=== PATIENT | female | born 1995 | race African-American/Black ===

== ENCOUNTER 2022-02-04 23:05 | Emergency (ER) | payer SELFPAY ==
[~2022-02-04] VITALS: Ht 149.9 cm; Wt 65.0 kg
[2022-02-04 23:43] VITALS: BP 144/94
[2022-02-05 00:18] LABS: BASOPHILS % 0.9 % (0.0-2.0); EOSINOPHILS % 2.2 % (0.0-5.0); HEMATOCRIT. 37.1 % (36.0-48.0); HEMOGLOBIN. 12.4 g/dL (12.0-16.0); LYMPHOCYTES % 57.2 % (20.0-50.0); MEAN CORPUSCULAR HEMOGLOBIN 32.8 pg (28.0-32.0); MEAN PLATELET VOLUME 7.7 fl (7.4-10.4); MONOCYTES % 5.9 % (2.0-8.0); NEUTROPHILS % 33.8 % (40.0-76.0); PLATELET 253 x1000/uL (130-400); RED BLOOD CELL COUNT 3.79 mill/uL (4.2-5.4); RED CELL DISTRIBUTION WIDTH 15.1 % (11.6-14.6)
[2022-02-05 00:45] LABS: CHLORIDE 107 mEq/L (98-107)
[2022-02-05 00:56] LABS: B-HCG QUANTITATIVE < 1 mIU/mL (<3)
[2022-02-05 01:49] LABS: CLARITY URINE CLOUDY (CLEAR); COLOR URINE YELLOW (YELLOW); KETONES URINE TRACE (NEGATIVE); LEUKOCYTE ESTERASE URINE 2+ (NEGATIVE); NITRITE URINE NEGATIVE (NEGATIVE); OCCULT BLOOD URINE NEGATIVE (NEGATIVE); PROTEIN URINE NEGATIVE (NEGATIVE); SPECIFIC GRAVITY URINE 1.019 (1.005-1.030)
[2022-02-05] MEDS ORDERED: SULF1TAB48 PO (03:43)
[2022-02-05] MEDS ORDERED: NAPR-681 PO (03:43)
== END 2022-02-05 03:59 | disposition home or self-care (01) ==
LOC: ER 23:57
DX: N39.0 Urinary tract infection, site not specified (principal)
CPT/HCPCS: 36415; 76830; 76856; 80053; 81003; 84702; 85025; 86850; 86900; 87077; 99284

== ENCOUNTER 2022-03-15 13:03 | Emergency (ER) | payer SELFPAY ==
[~2022-03-15] VITALS: Ht 149.9 cm; Wt 63.0 kg
[~2022-03-15 13:03] MED LIST: NAPR-681 PO; SULF1TAB48 PO
[2022-03-15 13:09] VITALS: BP 121/75
[2022-03-15] MEDS ORDERED: ACETAMINOPHEN 325MG TABLET PO PRN (15:30)
== END 2022-03-15 19:00 | disposition left against medical advice (07) ==
LOC: ER 13:03
DX: O20.9 Hemorrhage in early pregnancy, unspecified (principal); Z3A.12 12 weeks gestation of pregnancy
CPT/HCPCS: 99281